=== PATIENT | female | born 1980 | race Asian ===

== ENCOUNTER 2016-12-10 02:06 | Emergency (ER) | payer BC ==
[~2016-12-10] VITALS: Ht 162.6 cm; Wt 102.1 kg
[~2016-12-10 02:06] MED LIST: TRAMADOL HCL100 M1 PO
[2016-12-10 02:53] LABS: PLATELET COUNT 220 K/uL (152-353)
[2016-12-10 02:59] LABS: POTASSIUM 4.1 mmol/L (3.6-5.2); SODIUM 140 mmol/L (136-145)
[2016-12-10 03:37] VITALS: BP 116/85; TEMP 97.8
== END 2016-12-10 03:43 | disposition home or self-care (01) ==
LOC: ED 02:06
PROVIDERS: Emergency Medicine
DX: K21.9 Gastro-esophageal reflux disease without esophagitis (principal)
CPT/HCPCS: 36415; 80053; 82550; 84484; 85027; 93005; 99283

== ENCOUNTER 2017-02-11 17:48 | Emergency (ER) | payer BC ==
[~2017-02-11] VITALS: Ht 160 cm; Wt 99.8 kg
[2017-02-11 19:52] VITALS: BP 124/86
== END 2017-02-11 19:45 | disposition home or self-care (01) ==
LOC: ED 17:48
DX: J02.0 Streptococcal pharyngitis (principal)
CPT/HCPCS: 81000; 81025; 87880; 96372; 99283; J1885; J2550

== ENCOUNTER 2017-05-31 08:53 | Emergency (ER) | payer BC ==
[~2017-05-31] VITALS: Ht 160 cm; Wt 92.1 kg
[2017-05-31 08:55] VITALS: TEMP 98.9
[2017-05-31 09:26] LABS: PLATELET COUNT 192 K/uL (152-353)
[2017-05-31 09:33] LABS: POTASSIUM 4.3 mmol/L (3.6-5.2); SODIUM 136 mmol/L (136-145)
[2017-05-31 10:39] VITALS: BP 117/77
== END 2017-05-31 10:40 | disposition home or self-care (01) ==
LOC: ED 08:53
DX: S39.012A Strain of muscle, fascia and tendon of lower back, initial encounter (principal)
CPT/HCPCS: 74022; 80053; 81000; 81025; 85027; 96374; 99283; J1885

== ENCOUNTER 2017-07-24 07:37 | Emergency (ER) | payer BC ==
[~2017-07-24] VITALS: Ht 160 cm; Wt 93.0 kg
[2017-07-24 08:29] LABS: PLATELET COUNT 204 K/uL (152-353)
[2017-07-24 08:35] LABS: SODIUM 137 mmol/L (136-145)
[2017-07-24 08:49] LABS: PARTIAL THROMBOPLASTIN TIME 26.5 SECONDS (24.5-33.6)
[2017-07-24 09:28] VITALS: BP 135/80; TEMP 97.2
== END 2017-07-24 09:37 | disposition home or self-care (01) ==
LOC: ED 07:37
DX: R07.89 Other chest pain (principal); R11.2 Nausea with vomiting, unspecified
CPT/HCPCS: 36415; 80053; 82553; 84484; 85027; 85610; 85730; 93005; 96372; 96374; 96376; 99283; J1885; J2360; J2405

== ENCOUNTER 2017-08-29 21:43 | Emergency (ER) | payer BC ==
[~2017-08-29] VITALS: Ht 160 cm; Wt 93.4 kg
[2017-08-30 01:31] VITALS: BP 121/85; TEMP 98.4
== END 2017-08-30 01:32 | disposition home or self-care (01) ==
LOC: ED 21:43
DX: J02.9 Acute pharyngitis, unspecified (principal)
CPT/HCPCS: 87081; 87880; 99283

== ENCOUNTER 2018-01-01 09:35 | Observation (INO) | payer BC ==
[~2018-01-01] VITALS: Ht 160 cm; Wt 92.6 kg
[2018-01-01] VITALS (8 sets, daily range): BP systolic 112–141; BP diastolic 61–74; TEMP 97.6–98.6; Ht 160 cm; Wt 92.6 kg
[2018-01-01 10:43] LABS: PLATELET COUNT 226 K/uL (152-353)
[2018-01-01 10:50] LABS: POTASSIUM 3.8 mmol/L (3.6-5.2)
[2018-01-02] VITALS: BP 116/74; TEMP 97.8
[2018-01-02 04:00] VITALS: BP 104/53; TEMP 97.4
[2018-01-02 05:00] LABS: PLATELET COUNT 181 K/uL (152-353)
[2018-01-02 08:11] VITALS: BP 109/59; TEMP 97.8
== END 2018-01-02 11:45 | disposition home or self-care (01) ==
LOC: ED 09:35 → MED/SURG 13:50
PROVIDERS: ADMIT Family Medicine
DX: R07.89 Other chest pain (principal); R42 Dizziness and giddiness; R00.2 Palpitations; G89.29 Other chronic pain; R11.0 Nausea; E66.8 Other obesity; M79.7 Fibromyalgia; J01.90 Acute sinusitis, unspecified; K21.9 Gastro-esophageal reflux disease without esophagitis
CPT/HCPCS: 36415; 80053; 82150; 82550; 83690; 84484; 85027; 93005; 96360; 96361; 96372; 96374; 96375; 99220; 99284; G0378; J1650; J2270; J2405; J2930; J3490

== ENCOUNTER 2018-02-28 14:51 | Emergency (ER) | payer BC ==
[~2018-02-28] VITALS: Ht 162.6 cm; Wt 83.9 kg
[2018-02-28 15:01] VITALS: TEMP 98.8
[2018-02-28 16:29] VITALS: BP 118/72
== END 2018-02-28 16:33 | disposition home or self-care (01) ==
LOC: ED 14:51
DX: M54.16 Radiculopathy, lumbar region (principal)
CPT/HCPCS: 81000; 81025; 96372; 99282; J1885

== ENCOUNTER 2018-03-01 16:42 | Outpatient (CLI) | payer BC | END 2018-03-01 19:54 | disposition home or self-care (01) | LOC: RAD 16:42 | DX: M25.562 Pain in left knee (principal) ==

== ENCOUNTER 2018-07-01 08:01 | Emergency (ER) | payer BC ==
[~2018-07-01] VITALS: Ht 162.6 cm; Wt 83.9 kg
[2018-07-01 08:18] VITALS: TEMP 97.7
[2018-07-01 08:54] LABS: PLATELET COUNT 202 K/uL (152-353)
[2018-07-01 09:00] LABS: POTASSIUM 4.2 mmol/L (3.6-5.2)
[2018-07-01 09:33] VITALS: BP 126/82
== END 2018-07-01 09:33 | disposition home or self-care (01) ==
LOC: ED 08:01
DX: M54.5 Low back pain (principal); M51.36 Other intervertebral disc degeneration, lumbar region; R51 Headache
CPT/HCPCS: 36415; 80053; 81000; 85027; 99283

== ENCOUNTER 2018-09-24 15:45 | Emergency (ER) | payer OTHER ==
[~2018-09-24] VITALS: Ht 160 cm; Wt 89.8 kg
[2018-09-24 18:02] VITALS: BP 121/68; TEMP 98.1
== END 2018-09-24 18:04 | disposition home or self-care (01) ==
LOC: ED 15:45
DX: M94.0 Chondrocostal junction syndrome [Tietze] (principal)
CPT/HCPCS: 93005; 96372; 99283; J1100

== ENCOUNTER 2018-10-08 13:27 | Outpatient (CLI) | payer BC ==
[2018-10-08 14:07] LABS: PLATELET COUNT 199 K/uL (152-353)
[2018-10-08 14:29] LABS: POTASSIUM 4.2 mmol/L (3.6-5.2); SODIUM 140 mmol/L (136-145)
== END 2018-10-08 22:39 | disposition home or self-care (01) ==
LOC: LABW 13:27
PROVIDERS: Nurse Practitioner Family
DX: R07.89 Other chest pain (principal)
CPT/HCPCS: 80053; 82550; 82553; 84484; 85027; 85379

== ENCOUNTER 2019-01-06 20:44 | Emergency (ER) | payer BC ==
[~2019-01-06] VITALS: Ht 160 cm; Wt 89.4 kg
[2019-01-06 20:51] VITALS: TEMP 99
[2019-01-06 22:10] LABS: PLATELET COUNT 219 K/uL (152-353)
[2019-01-06 22:45] VITALS: BP 120/69
== END 2019-01-06 23:35 | disposition home or self-care (01) ==
LOC: ED 20:44
PROVIDERS: Internal Medicine
DX: J32.0 Chronic maxillary sinusitis (principal); K52.9 Noninfective gastroenteritis and colitis, unspecified; R11.2 Nausea with vomiting, unspecified; R19.7 Diarrhea, unspecified
CPT/HCPCS: 80053; 85027; 96372; 99283; J1885; J2405

== ENCOUNTER 2019-02-18 10:56 | Outpatient (CLI) | payer BC | END 2019-02-18 23:32 | disposition home or self-care (01) | LOC: RAD 10:56 | DX: M79.672 Pain in left foot (principal) ==

== ENCOUNTER 2019-08-04 11:08 | Outpatient (CLI) | payer BC | END 2019-08-04 19:48 | disposition home or self-care (01) | LOC: MAMMO 11:08 | DX: Z12.31 Encounter for screening mammogram for malignant neoplasm of breast (principal) ==

== ENCOUNTER 2019-08-09 10:05 | Outpatient (CLI) | payer BC | END 2019-08-09 20:56 | disposition home or self-care (01) | LOC: US 10:05 | DX: R10.32 Left lower quadrant pain (principal) ==

== ENCOUNTER 2019-08-17 10:02 | Outpatient (CLI) | payer BC | END 2019-08-17 19:29 | disposition home or self-care (01) | LOC: US 10:02 | DX: R92.8 Other abnormal and inconclusive findings on diagnostic imaging of breast (principal) ==

== ENCOUNTER 2020-01-03 00:07 | Emergency (ER) | payer BC ==
[~2020-01-03] VITALS: Ht 160 cm; Wt 96.2 kg
[2020-01-03 01:03] LABS: PLATELET COUNT 192 K/uL (152-353)
[2020-01-03 01:10] LABS: POTASSIUM 3.9 mmol/L (3.6-5.2); SODIUM 138 mmol/L (136-145)
[2020-01-03 02:15] VITALS: BP 134/88; TEMP 98.8
== END 2020-01-03 02:15 | disposition home or self-care (01) ==
LOC: ED 00:07
PROVIDERS: Family Medicine
DX: K21.9 Gastro-esophageal reflux disease without esophagitis (principal)
CPT/HCPCS: 36415; 80053; 82550; 82553; 84484; 85027; 93005; 99283

== ENCOUNTER 2020-04-01 18:43 | Emergency (ER) | payer BC ==
[~2020-04-01] VITALS: Ht 160 cm; Wt 92.5 kg
[2020-04-01 20:23] LABS: PLATELET COUNT 235 K/uL (152-353)
[2020-04-01 20:26] LABS: POTASSIUM 3.7 mmol/L (3.6-5.2)
[2020-04-01 21:30] VITALS: BP 120/87; TEMP 97.7
== END 2020-04-01 21:30 | disposition home or self-care (01) ==
LOC: ED 18:43
PROVIDERS: Hospitalist
DX: J32.8 Other chronic sinusitis (principal); R51 Headache; H65.193 Other acute nonsuppurative otitis media, bilateral
CPT/HCPCS: 80048; 85027; 87502; 87651; 96372; 99283; J0696; J1885

== ENCOUNTER 2020-05-17 07:45 | Emergency (ER) | payer BC ==
[2020-05-17 19:02] LABS: POTASSIUM 4.1 mmol/L (3.6-5.2); SODIUM 138 mmol/L (136-145)
[2020-05-17 19:50] LABS: PARTIAL THROMBOPLASTIN TIME 26.5 SECONDS (24.5-33.6); PLATELET COUNT 200 K/uL (152-353)
== END 2020-05-17 11:20 | disposition home or self-care (01) ==
LOC: ED 07:45
PROVIDERS: Hospitalist
DX: R07.89 Other chest pain (principal); K21.9 Gastro-esophageal reflux disease without esophagitis; I80.01 Phlebitis and thrombophlebitis of superficial vessels of right lower extremity
CPT/HCPCS: 80053; 82550; 82553; 84484; 85027; 85379; 85610; 85730; 93005; 96374; 96375; 99284

== ENCOUNTER 2021-01-14 15:20 | Emergency (ER) | payer BC ==
[~2021-01-14] VITALS: Ht 160 cm; Wt 88.5 kg
[2021-01-14 17:20] VITALS: BP 119/89; TEMP 97.6
== END 2021-01-14 17:20 | disposition home or self-care (01) ==
LOC: ED 15:20
DX: S16.1XXA Strain of muscle, fascia and tendon at neck level, initial encounter (principal); S93.691A Other sprain of right foot, initial encounter; S93.491A Sprain of other ligament of right ankle, initial encounter
CPT/HCPCS: 99283

== ENCOUNTER 2021-05-20 17:25 | Emergency (ER) | payer BC ==
[~2021-05-20] VITALS: Ht 160 cm; Wt 88.5 kg
[2021-05-20 18:10] LABS: PLATELET COUNT 277 K/uL (152-353)
[2021-05-20 19:26] LABS: POTASSIUM 4.6 mmol/L (3.6-5.2)
[2021-05-20 21:40] VITALS: BP 121/88; TEMP 98.6
== END 2021-05-20 21:40 | disposition home or self-care (01) ==
LOC: ED 17:25
PROVIDERS: Emergency Medicine
DX: R10.32 Left lower quadrant pain (principal); M54.5 Low back pain; M79.7 Fibromyalgia
CPT/HCPCS: 80053; 81000; 85027; 96374; 96375; 99284; J1885; J2405; Q9963

== ENCOUNTER 2021-10-02 15:15 | Outpatient (CLI) | payer BC ==
[2021-10-02 16:27] LABS: PLATELET COUNT 221 K/uL (152-353)
[2021-10-02 17:20] LABS: POTASSIUM 3.9 mmol/L (3.6-5.2)
== END 2021-10-02 19:40 | disposition home or self-care (01) ==
LOC: US 15:15
PROVIDERS: ATTEND Nurse Practitioner Family
DX: M79.605 Pain in left leg (principal); R42 Dizziness and giddiness
CPT/HCPCS: 36415; 80053; 82550; 84484; 85027

== ENCOUNTER 2022-01-30 07:50 | Emergency (ER) | payer BC ==
[~2022-01-30] VITALS: Ht 160 cm; Wt 88.5 kg
[2022-01-30 07:54] VITALS: BP 114/70; TEMP 97.8
== END 2022-01-30 08:57 | disposition home or self-care (01) ==
LOC: ED 07:50
DX: G43.909 Migraine, unspecified, not intractable, without status migrainosus (principal)
CPT/HCPCS: 93005; 96372; 99283; J2270; J2405

== ENCOUNTER 2022-02-12 13:21 | Outpatient (CLI) | payer BC ==
[2022-02-12 14:11] LABS: POTASSIUM 4.3 mmol/L (3.6-5.2); SODIUM 139 mmol/L (136-145)
== END 2022-02-12 19:13 | disposition home or self-care (01) ==
LOC: US 13:21
PROVIDERS: ATTEND Nurse Practitioner Family
DX: R10.32 Left lower quadrant pain (principal); N94.6 Dysmenorrhea, unspecified
CPT/HCPCS: 36415; 80053; 82150; 83690; 84702

== ENCOUNTER 2022-05-06 11:52 | Emergency (ER) | payer BC ==
[~2022-05-06] VITALS: Ht 160 cm; Wt 88.5 kg
[2022-05-06 12:12] VITALS: TEMP 97.6
[2022-05-06 12:53] LABS: PLATELET COUNT 176 K/uL (152-353)
[2022-05-06 13:01] LABS: POTASSIUM 3.9 mmol/L (3.6-5.2)
[2022-05-06 14:12] VITALS: BP 113/83
[2022-05-06] MEDS ORDERED: AZIT250T3 PO (14:24)
[2022-05-06] MEDS ORDERED: PRED20TA27 PO (14:24)
[2022-05-06] MEDS ORDERED: KETO10TA34 PO (14:24)
== END 2022-05-06 14:30 | disposition home or self-care (01) ==
LOC: ED 11:52
PROVIDERS: Emergency Medicine Emergency Medical Services
DX: R09.1 Pleurisy (principal); J02.9 Acute pharyngitis, unspecified; Z11.52 Encounter for screening for COVID-19
CPT/HCPCS: 36415; 80048; 81002; 81025; 84484; 85027; 85379; 87502; 87635; 87651; 93005; 96360; 96374; 99284; J1885; U0003

== ENCOUNTER 2022-09-13 14:28 | Emergency (ER) | payer BC ==
[~2022-09-13] VITALS: Ht 160 cm; Wt 88.5 kg
[~2022-09-13 14:28] MED LIST changes: +AZIT250T3 PO; +KETO10TA34 PO; +PRED20TA27 PO
[2022-09-13 14:34] VITALS: BP 140/86; TEMP 98.5
== END 2022-09-13 16:04 | disposition home or self-care (01) ==
LOC: ED 14:28
DX: H65.192 Other acute nonsuppurative otitis media, left ear (principal); M26.622 Arthralgia of left temporomandibular joint; J32.8 Other chronic sinusitis
CPT/HCPCS: 96372; 99283; J0696; J1885

== ENCOUNTER 2023-03-25 16:40 | Emergency (ER) | payer BC ==
[~2023-03-25] VITALS: Ht 160 cm; Wt 92.1 kg
[2023-03-25 17:48] LABS: PLATELET COUNT 180 K/uL (152-353)
[2023-03-25 17:54] LABS: POTASSIUM 3.7 mmol/L (3.6-5.2)
[2023-03-25 18:02] LABS: PARTIAL THROMBOPLASTIN TIME 29.9 SECONDS (23.9-36.7)
[2023-03-25 21:05] VITALS: BP 124/87; TEMP 98.1
== END 2023-03-25 21:05 | disposition home or self-care (01) ==
LOC: ED 16:40
PROVIDERS: Family Medicine
DX: R07.89 Other chest pain (principal)
CPT/HCPCS: 36415; 80053; 82550; 84484; 85027; 85610; 85730; 86140; 93005; 96367; 96374; 96375; 99283; 99284; J2270; J2405

== ENCOUNTER 2023-03-31 11:33 | Outpatient (CLI) | payer BC ==
[2023-03-31 13:19] LABS: PLATELET COUNT 166 K/uL (152-353)
[2023-03-31 13:22] LABS: POTASSIUM 4.4 mmol/L (3.6-5.2)
== END 2023-03-31 20:24 | disposition home or self-care (01) ==
LOC: RESP 11:33 → LABW 11:33
PROVIDERS: ATTEND Nurse Practitioner Family
DX: R10.12 Left upper quadrant pain (principal); R07.89 Other chest pain
CPT/HCPCS: 36415; 80053; 82150; 82550; 82553; 83690; 84484; 85027; 93005